=== PATIENT | female | born 1990 | race Caucasian/White ===

== ENCOUNTER 2017-07-26 15:49 | Inpatient (IN) | payer BC ==
[2017-07-26] MEDS ORDERED: METOCLOPRAMIDE HCL 5 MG/ML VIAL IV PRN (15:59)
[2017-07-26] MEDS ORDERED: diphenhydrAMINE HCL 50 MG/ML VIAL IV ONE (16:00)
[2017-07-26 16:27] LABS: Hematocrit 36.4 % (37.0-47.0); Hemoglobin 12.3 gm/dL (12.5-16.0); Mean Cell Volume 92.6 fl (78-100); Mean Corpuscular Hemoglobin 31.3 pg (27-31); Mean Corpuscular Hgb Conc 33.8 g/dl (32-36); Mean Platelet Volume 9.9 fl (6.0-9.5); Neutrophil # 5.9 K/mm3 (1.3-6.0); Neutrophil % 67.1 % (42-75.0); Platelet Count 215 K/mm3 (150-450); Red Blood Count 3.93 M/mm3 (4.2-5.4); Red Cell Distribution Width 13.2 % (11.5-14.0); White Blood Count 8.8 K/mm3 (4.0-10.5)
[2017-07-26 16:47] LABS: Albumin * 2.7 gm/dl (3.4-5.0); Anion Gap 15.7 mmol/L (6.8-13.8); BUN/Creatinine Ratio 23.8 (9.0-21.6); Bilirubin, Total 0.3 mg/dL (0.0-1.1); Ca. Corrected For Albumin 9.2 mg/dL (8.4-10.2); Calcium * 8.5 mg/dL (7.9-10.9); Carbon Dioxide 20.9 mmol/L (24-32.6); Potassium 3.6 mmol/L (3.4-4.6); Total Protein 6.8 gm/dL (6.2-8.2)
[2017-07-26 17:00] LABS: Random Urine Total Protein 8.9 mg/dL (0-12)
[2017-07-26] MEDS ORDERED: OXYTOCIN/DEXTROSE 5%-WATER 30 UNITS/500 ML BAG IV ONE ×2 (17:56→23:45)
[2017-07-26] MEDS ORDERED: ONDANSETRON HCL/PF 2 MG/ML VIAL IV PRN ×2 (17:57→22:28)
[2017-07-26] MEDS ORDERED: DEXTROSE 5%-LACTATED RINGERS 1,000 ML IV PRN (17:57)
[2017-07-26] MEDS ORDERED: LIDOCAINE HCL 50 ML VIAL PERI PRN (17:57)
[2017-07-26] MEDS ORDERED: RINGER'S SOLUTION,LACTATED 1,000 ML IV ONE (21:38)
[2017-07-26] MEDS ORDERED: NALOXONE HCL 1 MG/1 ML SYRG IV PRN (22:28)
[2017-07-26] MEDS ORDERED: BUPIVACAINE HCL/0.9 % NACL/PF 250 ML EP PRN (22:28)
[2017-07-26] MEDS ORDERED: BUPIVACAINE HCL/PF 30 ML VIAL EP SCH (22:30)
--- NOTE | 2017-07-26 22:34 | PN ---
Progess Note - Interim Narrative: 07/26/17 22:33 Patient rating her contractions as mild/moderate Vital signs stable. Pitocin at 15 mu/min. FHT: 140 baseline, reassuring Contractions q 2-3 min Cervix: 7/75/-1, AROM-clear at 2130 Impression: Intrauterine at 39-3/7 weeks induction of labor for gestational hypertension Plan: Continue present plan
--- NOTE | 2017-07-26 23:16 | OR ---
Anesthesia Procedure Note - Anesthesia Procedure Note Date of Service: 07/26/17 Narrative: Vital Signs - Last Taken Temp 36.6 C 07/26/17 23:12 Pulse 66 07/26/17 23:12 Resp 20 07/26/17 23:12 BP 133/91 07/26/17 23:12 Pulse Ox 97 07/26/17 23:12 07/26/17 23:15 ANESTHESIA PROCEDURE NOTE Date of Procedure: 07/26/2017. Time of procedure: 2250. Performed by: Yousif Arechiga CRNA Hydraulic Lift Operator: None. Preprocedure diagnosis: Active labor. Post procedure diagnosis: Same. Procedure: Insertion of labor epidural. Indications: The patient is a 27 -year-old female in active labor requesting labor epidural for pain management. Findings: See below. Details of the procedure: The patient was placed in a sitting position. DuraPrep as well as Betadine swabs X3 was applied to the patient's back. Patient was then draped in a sterile fashion. Lidocaine 1% was infiltrated to the skin and subcutaneous tissues at the level of the L3-4 interspace. The epidural space was identified using a 18-gauge Tuohy needle with loss-of- resistance technique. Epidural catheter was inserted to a depth of 11 centimeters at skin. Negative test dose was elicited using 3 mL of 1.5% preservative-free lidocaine plus epinephrine 1 200,000. The epidural catheter was then taped and secured in place. A loading dose of 8 mL of 0.25% preservative-free bupivacaine was administered to the epidural catheter after negative aspiration for blood and CSF. EBL: Minimal. Fluids: N/A. Specimen: N/A. Post procedure condition: The patient tolerated the procedure well. No complications were noted. Thank you for this consultation. Yousif Arechiga CRNA
--- NOTE | 2017-07-26 23:43 | OR ---
Operative Report - Dictated Report Narrative: Spontaneous vaginal delivery of viable male at [phone] with Apgars 9 and 9, weighing 3549 g in LAVONNE position with nuchal cord 1. Cord clamping delayed approximately 1 minute Placenta delivered complete, intact, with three vessel cord Estimated blood loss: less than 50 ml Lacerations: 1 cm first-degree vaginal laceration with no repair needed History for MU Definition: * The number of deliveries resulting in a live the patient experienced prior to current hospitalization * The previous delivery of live twins or any live multiple gestation is considered one live event. *If primagravida or nulliparous is documented select zero for the number of previous live births. Live Events: 1
[2017-07-26] MEDS ORDERED: HYDROCORTISONE 30 APPL TUBE TP PRN (23:45)
[2017-07-26] MEDS ORDERED: IBUPROFEN 800 MG TABLET PO PRN (23:45)
[2017-07-26] MEDS ORDERED: GLYCERIN/WITCH HAZEL LEAF 40 APPL BOX TP PRN (23:45)
[2017-07-26] MEDS ORDERED: oxyCODONE HCL/ACETAMINOPHEN 1 TAB TABLET PO PRN ×2 (23:45)
[2017-07-26] MEDS ORDERED: BISACODYL 10 MG SUPP.RECT RC PRN (23:45)
[2017-07-26] MEDS ORDERED: BENZOCAINE/MENTHOL 81 SPRAY CAN TP PRN (23:45)
[2017-07-26] MEDS ORDERED: SENNOSIDES 8.6 MG TABLET PO PRN (23:45)
[2017-07-27] MEDS ORDERED: BUPIVACAINE HCL/PF 30 ML VIAL EP ONE (05:20)
[2017-07-27] MEDS: PRENATAL VITS96/IRON FUM/FOLIC 1 TAB TABLET PO SCH (08:31)
[2017-07-27] MEDS: DOCUSATE SODIUM 100 MG CAPSULE PO SCH ×2 (08:31→20:46)
[2017-07-28 07:37] VITALS: BP 119/81
[2017-07-28] MEDS: DOCUSATE SODIUM 100 MG CAPSULE PO SCH (08:19)
[2017-07-28] MEDS: PRENATAL VITS96/IRON FUM/FOLIC 1 TAB TABLET PO SCH (08:19)
--- NOTE | 2017-07-28 10:05 | PN ---
Subjective - Date and Time Seen Date: 07/28/17 Time: 10:04 Objective - Vitals Vitals: Last Vital Signs Temp 36.7 C 07/28/17 07:34 Pulse 63 07/28/17 07:34 Resp 20 07/28/17 07:34 BP 119/81 07/28/17 07:34 Pulse Ox 95 07/28/17 07:34 Patient denies complaints. Lochia wnl Abdomen - soft, nontender Uterus - firm, at umbilicus - 2 No calf tenderness Impression: day #2 - s/p spontaneous vaginal delivery. Gestational hypertension-resolved. Plan: Routine discharge instructions
--- NOTE | 2017-07-31 09:50 | PN ---
Progess Note - Interim Narrative: 07/31/17 09:50 Late entry for 07/27/2017 progress note. Patient denies complaints. Lochia wnl Abdomen - soft, nontender Uterus - firm, at umbilicus - 1 No calf tenderness Impression: day #1 - s/p spontaneous vaginal delivery. Plan: Continue routine care
== END 2017-07-28 13:05 | disposition home or self-care (01) | DRG 775 ==
LOC: OB 15:49
PROVIDERS: ADMIT Obstetrics & Gynecology; ATTEND Obstetrics & Gynecology
PROC: 10E0XZZ Delivery of Products of Conception, External Approach (ICD-10-PCS; principal; 2017-07-26)
PROC: 10907ZC Drainage of Amniotic Fluid, Therapeutic from Products of Conception, Via Natural or Artificial Opening (ICD-10-PCS; 2017-07-26)
PROC: 3E033VJ Introduction of Other Hormone into Peripheral Vein, Percutaneous Approach (ICD-10-PCS; 2017-07-26)
PROC: 4A1HXCZ Monitoring of Products of Conception, Cardiac Rate, External Approach (ICD-10-PCS; 2017-07-26)
PROC: 00HU33Z Insertion of Infusion Device into Spinal Canal, Percutaneous Approach (ICD-10-PCS; 2017-07-26)
DX: O13.4 Gestational [pregnancy-induced] hypertension without significant proteinuria, complicating childbirth (principal); O69.81X0 Labor and delivery complicated by cord around neck, without compression, not applicable or unspecified; O70.0 First degree perineal laceration during delivery; Z3A.39 39 weeks gestation of pregnancy; Z37.0 Single live birth

== ENCOUNTER 2017-08-22 12:01 | Day surgery (SDC) | payer BC, OTHER ==
[~2017-08-22 12:01] MED LIST: RINGER'S SOLUTION,LACTATED 1,000 ML IV PRN
[2017-08-22 12:40] LABS: Hematocrit 46.3 % (37.0-47.0); Hemoglobin 15.4 gm/dL (12.5-16.0); Mean Cell Volume 92.4 fl (78-100); Mean Corpuscular Hemoglobin 30.7 pg (27-31); Mean Corpuscular Hgb Conc 33.3 g/dl (32-36); Mean Platelet Volume 9.9 fl (6.0-9.5); Neutrophil # 2.5 K/mm3 (1.3-6.0); Neutrophil % 41.8 % (42-75.0); Platelet Count 245 K/mm3 (150-450); Red Blood Count 5.01 M/mm3 (4.2-5.4); Red Cell Distribution Width 11.9 % (11.5-14.0)
[2017-08-22] MEDS ORDERED: BUPIVACAINE HCL 50 ML VIAL IJ ONE ×2 (12:55)
[2017-08-22 13:16] LABS: Albumin * 3.8 gm/dl (3.4-5.0); Anion Gap 12.5 mmol/L (6.8-13.8); BUN/Creatinine Ratio 22.2 (9.0-21.6); Bilirubin, Total 0.4 mg/dL (0.0-1.1); Ca. Corrected For Albumin 9.2 mg/dL (8.4-10.2); Calcium * 9.4 mg/dL (7.9-10.9); Carbon Dioxide 26.5 mmol/L (24-32.6); Total Protein 7.7 gm/dL (6.2-8.2)
[2017-08-22] MEDS ORDERED: RINGER'S SOLUTION,LACTATED 1,000 ML IV ONE (13:45)
[2017-08-22] MEDS ORDERED: oxyCODONE HCL/ACETAMINOPHEN 1 TAB TABLET PO ONE (14:26)
[2017-08-22] MEDS ORDERED: RINGER'S SOLUTION,LACTATED 1,000 ML IV PRN (14:26)
[2017-08-22] MEDS ORDERED: IBUPROFEN 800 MG TABLET PO ONE (14:26)
--- NOTE | 2017-08-22 14:26 | OR ---
Operative Report - Dictated Report Narrative: DATE OF PROCEDURE: 08/22/2017 PROCEDURE: 1. Laparoscopic bilateral salpingectomy. ANESTHESIA: General, endotracheal intubation. PREOPERATIVE DIAGNOSES: 1. Desiring sterilization 2. , 3 week 6 day from a vaginal POSTOPERATIVE DIAGNOSES: 1. Desiring sterilization 2. , 3 week 6 day from a vaginal SURGEON: Dino Steve M.D. LACE BURN OUT TENDER: Susan FINDINGS: 1. Normal retroverted uterus, sounded to 10 cm. 2. Normal bilateral ovaries and tubes. SPECIMENS: 1. right tube 2. Left tube DRAINS: None. URINE OUTPUT: not measured BLOOD LOSS: 5 ml INTRAOPARATIVE IV FLUIDS: 1000 ml COMPLICATIONS: None. DESCRIPTION OF PROCEDURE: The patient consented prior to the operation and taken to the operating room. She was placed on the operating table supine. SCDs were placed on her lower extremities. General anesthesia was induced. She was repositioned in the dorsal lithotomy position. Exam under anesthesia revealed a normal retroverted uterus with no adnexal mass. The abdomen was prepped with Chloraprep and the vagina was prepped with Betadine. She was draped in the usual sterile fashion. A time-out procedure was conducted to confirm the correct patient for the correct procedure. After time-out, a bivalve speculum was placed into the vagina. The cervix was visualized. The vagina and the cervix were prepped with Betadine one more time. The anterior cervix was grasped with a single-tooth tenaculum. The uterus was sounded to 10 cm. The cervix was dilated, and a Zumi uterine manipulator was placed. The single tooth tenaculum and the bivalve speculum were removed. The surgeon then changed gloves and attention was paid to the abdomen. A small vertical incision was made at the upper edge of the umbilicus. A Veress needle was inserted into the abdominal cavity. Intraabdominal placement was confirmed with a saline drop test and with low entry pressure of 6 mmHg. The abdomen was insufflated with CO2 gas to an intraabdominal pressure of 15 mmHg. The Veress needle was removed. A 5 mm trocar with the laparoscope was inserted through the umbilicus incision into the abdomen. Intraabdominal placement was confirmed with the laparoscope. Survey of the entry site revealed no trauma to the underlying structures. Survey of the upper abdomen was unremarkable. The patient was then placed in Trendelenburg position. Two more trocars were placed in the lower abdomen. A left lower quadrant trocar (5 mm trocar) was placed superior and medial to the anterior superior iliac spine to avoid the vessels and the nerves. A third 8 mm suprapubic trocar was placed in the midline. All trocars were placed under the direct visualization of the laparoscope. Survey of the pelvis revealed the findings noted above. Attention was now turned to the right side. The right fallopian tube was elevated. The mesosalpinx was divided with the Thunderbeat. The division was carried to the cornue of the uterus. The right fallopian tube was divided at the cornue of the uterus. The right tube was removed through the 8 mm trocar. The left fallopian tube was elevated. The mesosalpinx was divided with the Thunderbeat. The division was carried to the cornue of the uterus. The left fallopian tube was divided at the cornue of the uterus and removed through the 8 mm trocar. There was hemostasis. The patient was taken out of Trendelenburg. The lower abdominal trocars were removed under direct visualization. The abdomen was deflated. The trocar at the umbilicus was removed with the laparoscope. The skin incisions were closed with 4-0 Monocryl suture and the incisions were covered with Steri-Strips. The incision was infiltrated with 2 to 3 cc of 0.25% Marcaine for post op pain management. The patient tolerated the procedure well. All counts were correct and the patient was taken to the recovery room in stable condition. Dino Steve MD
[2017-08-22] MEDS ORDERED: oxyCODONE HCL/ACETAMINOPHEN 1 TAB TABLET ONE (16:12)
[2017-08-22 17:22] VITALS: BP 118/72
== END 2017-08-22 12:02 | disposition home or self-care (01) ==
LOC: AMB 12:01
PROVIDERS: ATTEND Obstetrics & Gynecology
PROC: 0UT74ZZ Resection of Bilateral Fallopian Tubes, Percutaneous Endoscopic Approach (ICD-10-PCS; principal; 2017-08-22 13:00)
DX: Z30.2 Encounter for sterilization (principal); Z68.32 Body mass index [BMI] 32.0-32.9, adult